=== PATIENT | female | born 1980 | race Caucasian/White ===

== ENCOUNTER 2018-07-21 18:47 | Emergency (ER) | payer SELFPAY ==
[~2018-07-21] VITALS: Ht 149.9 cm; Wt 59.0 kg
[~2018-07-21 18:47] MED LIST: ALBU0.0939 IH; SERT25TA PO
[2018-07-21 19:10] VITALS: BP 120/46
--- NOTE | 2018-07-21 19:15 | NUR ---
PT RETURNED TO LOBBY IN STABLE CONDITION
--- NOTE | 2018-07-21 19:28 | NUR ---
PT WHEELCHAIRED TO BED 5
--- NOTE | 2018-07-21 19:30 | NUR ---
37 Y FEMALE BIB FAMILY C/O LEFT LOWER BACK PAIN WHILE MOVING BOXES TODAY. SHARP PAIN 01/27. -N/V/D. DENIES TRUAMA. PT STATES HER ONLY COMPLAINT IS THE BACK PAIN. BED IS DOWN, LOCKED, BED RAIL X 1, ERMD NOTIFIED. URINE COLLECTED. MED HX: ASTHMA
--- NOTE | 2018-07-21 19:32 | NUR ---
PT BEING TAKEN TO X-RAY
[2018-07-21 20:05] LABS: APPEARANCE,URINE CLEAR (CLEAR); BILIRUBIN,URINE NEGATIVE (NEGATIVE); BLOOD, URINE NEGATIVE (NEGATIVE); COLOR,URINE YELLOW (YELLOW); LEUKOCYTE ESTERASE ,URINE NEGATIVE (NEGATIVE); NITRITE, URINE NEGATIVE (NEGATIVE); UGLUCOSE NEGATIVE (NEGATIVE)
[2018-07-21] MEDS ORDERED: KETOROLAC 60 MG/2 ML VIAL IM ONE (20:30)
--- NOTE | 2018-07-21 21:20 | NUR ---
DR RAPHAEL AT BEDSIDE
[2018-07-21 21:49] VITALS: BP 120/46
--- NOTE | 2018-07-21 21:49 | NUR ---
PT DISCHARGED BY DR RAPAHEL
== END 2018-07-21 21:49 | disposition home or self-care (01) ==
LOC: MED 18:47
DX: S33.5XXA Sprain of ligaments of lumbar spine, initial encounter (principal); J45.909 Unspecified asthma, uncomplicated; Z88.6 Allergy status to analgesic agent; Z88.5 Allergy status to narcotic agent; Z79.899 Other long term (current) drug therapy; X50.0XXA Overexertion from strenuous movement or load, initial encounter; Y93.89 Activity, other specified; Y92.89 Other specified places as the place of occurrence of the external cause; Y99.8 Other external cause status
CPT/HCPCS: 72110; 81003; 81025; 96372; 99284; J1885

== ENCOUNTER 2018-09-09 14:26 | Emergency (ER) | payer SELFPAY ==
[~2018-09-09] VITALS: Ht 149.9 cm; Wt 62.8 kg
[2018-09-09 14:37] VITALS: BP 113/71
--- NOTE | 2018-09-09 14:39 | NUR ---
PT AMBULATED TO BED 10
--- NOTE | 2018-09-09 14:40 | NUR ---
PATIENT PRESENTS TO ED WITH C/O HEMATURIA. PT STATES SHE HAS HISTORY OF UTI'S. SHE STARTED TAKING OTC "AZO'S" THIS AM WITH NO RELIEF. PAIN 10/27 PT DENIES N/V/D; SKIN IS PINK/WARM/DRY; AAOX4 WITH EVEN AND STEADY GAIT; LUNGS CLEAR BL; HR EVEN AND REGULAR; PATIENT POSITIONED FOR COMFORT; HOB ELEVATED; BEDRAILS UP X2; BED DOWN. PT BE BE EVALUATED BY PA/PHYSICIAN.
--- NOTE | 2018-09-09 15:06 | NUR ---
ILDEFONSO MOORE TO EVALUATE PT AT BEDSIDE
--- NOTE | 2018-09-09 15:32 | NUR ---
Patient discharged with v/s stable. Written and verbal after care instructions given and explained. Patient alert, oriented and verbalized understanding of instructions. Ambulatory with steady gait. All questions addressed prior to discharge. ID band removed. Patient advised to follow up with PMD. Rx of MOTRIN 600 MG, KEFLEX 500 MG given. Patient educated on indication of medication including possible reaction and side effects. Opportunity to ask questions provided and answered.
[2018-09-09 15:33] VITALS: BP 111/55
== END 2018-09-09 15:32 | disposition home or self-care (01) ==
LOC: MED 14:26
DX: N39.0 Urinary tract infection, site not specified (principal); J45.909 Unspecified asthma, uncomplicated; Z88.5 Allergy status to narcotic agent; Z88.6 Allergy status to analgesic agent; Z79.899 Other long term (current) drug therapy
CPT/HCPCS: 81002; 81025; 87086; 99283

== ENCOUNTER 2020-12-04 13:16 | Emergency (ER) | payer SELFPAY ==
[~2020-12-04] VITALS: Ht 160 cm; Wt 63.5 kg
[2020-12-04 13:26] VITALS: BP 140/55
[2020-12-04 14:14] LABS: BASOPHILS # (AUTO) 0.1 K/uL (0.00-0.22); BASOPHILS % (AUTO) 2.3 % (0.0-2.0); EOSINOPHILS # (AUTO) 0.1 K/uL (0-0.4); EOSINOPHILS % (AUTO) 2.4 % (0.0-4.0); HEMATOCRIT 36.4 % (36-48); HEMOGLOBIN 12.1 g/dL (12.0-16.0); LYMPHOCYTES # (AUTO) 1.8 K/uL (2.5-16.5); MEAN CORPUSCULAR HEMOGLOBIN 31 pg (27-31); MEAN CORPUSCULAR HGB CONC 33 g/dL (33-37); MEAN CORPUSCULAR VOLUME 92.2 fL (80-94); MONOCYTES # (AUTO) 0.5 K/uL (0.8-1.0); MONOCYTES % (AUTO) 7.8 % (1.7-9.3); NEUTROPHILS # (AUTO) 3.5 K/uL (1.8-7.7); NEUTROPHILS % (AUTO) 57.5 % (42.2-75.2); PLATELET COUNT (AUTO) 236 K/uL (140-450); RED BLOOD CELL COUNT(AUTO) 3.95 MIL/uL (4.20-5.40); RED CELL DISTRIBUTION WIDTH 13.6 % (11.6-13.7)
[2020-12-04 14:30] LABS: ALBUMIN 4.2 g/dL (3.4-5.0); ANION GAP 12.1 (8-16); CREATININE 0.8 mg/dL (0.6-1.3); POTASSIUM 4.1 mmol/L (3.5-5.1); TOTAL BILIRUBIN 0.3 mg/dL (0.0-1.0)
[2020-12-04] MEDS ORDERED: IBUP-2213 PO (15:34)
[2020-12-04] MEDS ORDERED: CIPR500T4 PO (15:34)
[2020-12-04 15:35] VITALS: BP 129/67
--- NOTE | 2020-12-04 15:35 | NUR ---
CLARISA collected, walked to lab and handed to CPT. Sharon
--- NOTE | 2020-12-04 15:35 | NUR ---
No nursing interventions performed.
--- NOTE | 2020-12-04 15:37 | NUR ---
Patient discharged with v/s stable. Written and verbal after care instructions given and explained. Patient alert, oriented and verbalized understanding of instructions. Ambulatory with steady gait. All questions addressed prior to discharge. ID band removed. Patient advised to follow up with PMD. Rx of Cipro, Ibuprofen given. Patient educated on indication of medication including possible reaction and side effects. Opportunity to ask questions provided and answered.
[2020-12-04 16:31] LABS: APPEARANCE,URINE CLOUDY (CLEAR); BILIRUBIN,URINE NEGATIVE (NEGATIVE); BLOOD, URINE 3+ (NEGATIVE); COLOR,URINE RED (YELLOW); LEUKOCYTE ESTERASE ,URINE 3+ (NEGATIVE); NITRITE, URINE POSITIVE (NEGATIVE); PH,URINE 7.5 (5.0-9.0); UGLUCOSE TRACE (NEGATIVE)
[2020-12-04 16:41] LABS: RBC,URINE TOO NUMEROUS TO COUN /HPF (0-5); WBC,URINE 0-5 /HPF (0-5)
== END 2020-12-04 15:37 | disposition home or self-care (01) ==
LOC: MED 13:16
DX: N39.0 Urinary tract infection, site not specified (principal); J45.909 Unspecified asthma, uncomplicated; Z88.6 Allergy status to analgesic agent; Z88.5 Allergy status to narcotic agent
CPT/HCPCS: 36415; 80053; 81001; 81025; 85025; 87086; 99283

== ENCOUNTER 2023-10-02 00:17 | Emergency (ER) | payer OTHER ==
[~2023-10-02] VITALS: Ht 154.9 cm; Wt 65.8 kg
[~2023-10-02 00:17] MED LIST changes: +CIPR500T4 PO; +IBUP-2213 PO
[2023-10-02 00:18] VITALS: BP 140/89; PULSE 74; RESP 16; TEMP 97.4; O2SAT 100
[2023-10-02] MEDS: KETOROLAC 60 MG/2 ML VIAL IM ONE (01:55)
[2023-10-02] MEDS: ACETAMINOPHEN EXTRA STRENGTH 500 MG TAB PO ONE (03:10)
[2023-10-02] MEDS: FAMOTIDINE 20 MG TAB PO ONE (03:43)
[2023-10-02] MEDS: diphenhydrAMINE 50 MG CAP PO ONE (03:44)
[2023-10-02] MEDS: DEXAMETHASONE 10 MG/ML VIAL PO ONE (03:52)
[2023-10-02] MEDS ORDERED: IBUP-2213 PO (05:50)
[2023-10-02 05:57] VITALS: BP 127/74; PULSE 75; RESP 16; TEMP 97.9; O2SAT 98
== END 2023-10-02 05:57 | disposition home or self-care (01) ==
LOC: MED 00:17
DX: S52.122A Displaced fracture of head of left radius, initial encounter for closed fracture (principal); J45.909 Unspecified asthma, uncomplicated; Z79.1 Long term (current) use of non-steroidal anti-inflammatories (NSAID); Z79.2 Long term (current) use of antibiotics; Z79.899 Other long term (current) drug therapy; Z88.5 Allergy status to narcotic agent; Z88.6 Allergy status to analgesic agent; W01.0XXA Fall on same level from slipping, tripping and stumbling without subsequent striking against object, initial encounter; Y93.89 Activity, other specified; Y92.89 Other specified places as the place of occurrence of the external cause; Y99.0 Civilian activity done for income or pay
CPT/HCPCS: 29105; 73030; 73080; 73110; 81025; 96372; 99284; J1100; J1885; Q0163